=== PATIENT | female | born 1975 | race Caucasian/White ===

== ENCOUNTER 2017-04-26 17:29 | Emergency (ER) | payer OTHER ==
[2017-04-26] MEDS ORDERED: BUFFERED LIDOCAINE 10 ML SYRINGE ONE (17:48)
[2017-04-26] MEDS ORDERED: TETANUS/DIPHTHERIA/PERTUSSIS 0.5 ML SYRINGE IM ONE ×2 (18:04→18:06)
--- NOTE | 2017-04-26 18:06 | ED Physician Documentation ---
PD HPI LOWER EXT INJURY - Stated complaint Stated Complaint: LT FOOT LAC - Chief complaint Chief Complaint: Laceration - History obtained from History obtained from: Patient - History of Present Illness PD HPI LOW EXT INJURY LOCATION: Left, Foot Type of injury: Laceration (dropped knife on foot) Where injury occurred: Home Timing - onset: Today Review of Systems Constitutional: reports: Reviewed and negative Cardiac: reports: Reviewed and negative Respiratory: reports: Reviewed and negative PD PAST MEDICAL HISTORY - Past Medical History Cardiovascular: Hypertension, High cholesterol Respiratory: None Neuro: Fainting Endocrine/Autoimmune: None GI: Chronic constipation 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: None : None HEENT: None Psych: Depression, Bipolar disorder Musculoskeletal: None Derm: Herpes zoster - Past Surgical History 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 Surgical 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: Breast implants - Allergies Allergies/Adverse Reactions: Allergies Allergy/AdvReac Type Severity Reaction Status Date / Time No Known Drug Allergies Allergy Verified 04/26/17 17:35 - Social History Does the pt smoke?: No Smoking Status: Never smoker Does the pt drink ETOH?: No Does the pt have substance abuse?: No - Immunizations Immunizations are current?: Yes - POLST Patient has POLST: No PD ED PE NORMAL - Vitals Vital signs reviewed: Yes - General General: Alert and oriented X 3, No acute distress - Neuro Neuro: Alert and oriented X 3, Normal speech - Psych Psych: Normal mood, Normal affect PD ED PE EXPANDED - Extremities Feet visual: 1 - laceration (2cm vertical lac, NVI) Results - Vitals Vitals: Vital Signs - 24 hr 04/26/17 17:33 Temperature 36.8 C Heart Rate 91 Respiratory 18 Rate Blood Pressure 137/91 H O2 Saturation 98 Oxygen O2 Source Room air Procedures - Laceration (location) L foot Length in cm: 2 Wound type: Linear Neurovascular status: Sensory intact, Motor intact, Vascular intact Anesthesia: Lidocaine 1%, With bicarb Wound Preparation: Betadine, Irrigated copiously NS Skin layer closure: Nylon, Interrupted, Size #-0 - enter number (4-0), Sutures - enter # (6) Other: Patient tolerated well, Tetanus booster given Complexity: Simple Departure - Departure Disposition: 01 Home, Self Care Clinical Impression: Laceration Condition: Good Record reviewed to determine appropriate education?: Yes Instructions: ED Laceration Foot Comments: Wash the wound briefly but in general keep it dry and covered. Come back for any signs of infection which would include: Redness, swelling, drainage, increased pain, or fevers. Followup with your doctor in 14 days for suture removal. Your blood pressure was elevated today on check in to the emergency department. This does not mean that you have hypertension, it is a common phenomenon to check into the emergency department and have elevated blood pressure. I recommend that you see your primary care physician within the week to have it rechecked when you're feeling better.
[2017-04-26 18:40] VITALS: BP 129/86
== END 2017-04-26 18:38 | disposition home or self-care (01) ==
LOC: ED 17:29
DX: S91.312A Laceration without foreign body, left foot, initial encounter (principal); W26.0XXA Contact with knife, initial encounter; Y92.019 Unspecified place in single-family (private) house as the place of occurrence of the external cause; Z23 Encounter for immunization; I10 Essential (primary) hypertension; E78.00 Pure hypercholesterolemia, unspecified
CPT/HCPCS: 12001; 90471; 99283

== ENCOUNTER 2018-11-14 14:51 | Emergency (ER) | payer OTHER ==
[2018-11-14] MEDS ORDERED: HYDROcod/ACETAM 5/325 MG TABLET PO STA (15:20)
[2018-11-14] MEDS ORDERED: IBUPROFEN 800 MG TABLET PO STA (15:20)
--- NOTE | 2018-11-14 15:23 | ED Physician Documentation ---
History of Present Illness - Stated complaint Stated Complaint: RT RIB PX - Chief complaint Chief Complaint: General - History obtained from History obtained from: Patient - History of Present Illness Timing: Other (About a month ago she was doing lifts and she felt a pull in her right lower chest that was kind of bothering her but it was not severe until last night while she was wrestling with her son and got body slammed. Now she has severe right lower rib pain. There is no associated shortness of breath but it hurts to take a deep breath. She denies leg pain, pedal edema, recent travel, history of DVT or PE, hemoptysis, or control use.) Review of Systems Constitutional: denies: Fever, Chills Nose: denies: Rhinorrhea / runny nose, Congestion Cardiac: reports: Chest pain / pressure. 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 - Present Medications Home Medications: Ambulatory Orders Medication Instructions Recorded Confirmed Hydrocodone/Acetaminophen 1 - 2 each PO Q6H PRN #14 tablet 11/14/18 [Hydrocodon-Acetaminophen 5-325] Ibuprofen [Motrin] 800 mg PO Q8H PRN #30 tablet 11/14/18 - Allergies Allergies/Adverse Reactions: Allergies Allergy/AdvReac Type Severity Reaction Status Date / Time No Known Drug Allergies Allergy Verified 11/14/18 15:04 - Social History Does the pt smoke?: No Smoking Status: Never smoker Does the pt drink ETOH?: No Does the pt have substance abuse?: No - Immunizations Immunizations are current?: Yes - POLST Patient has POLST: No PD ED PE NORMAL - Vitals Vital signs reviewed: Yes - General General: Alert and oriented X 3, No acute distress, Other (Winces with motion) - Neck Neck: Supple, no meningeal sign, No bony TTP - Cardiac Cardiac: RRR, No murmur - Respiratory Respiratory: No respiratory distress, Clear bilaterally, Other (Quite tender around rib 9 in the right posterior axillary line.) - Abdomen Abdomen: Non tender - Extremities Extremities: No edema, No calf tenderness / cord Results - Vitals Vitals: Vital Signs - 24 hr 11/14/18 15:01 Temperature 37.1 C Heart Rate 94 Respiratory 16 Rate Blood Pressure 131/83 H O2 Saturation 100 Oxygen O2 Source Room air - Rads (name of study) R ribs and chest Radiology: EMP read contemporaneously (no displaced rib frx) Departure - Departure Disposition: Home, Self Care Clinical Impression: Intercostal muscle tear Qualifiers: Encounter type: initial encounter Qualified Code(s): S29.019A - Strain of muscle and tendon of unspecified wall of thorax, initial encounter Condition: Good Record reviewed to determine appropriate education?: Yes Instructions: ED Contusion Chest Wall Prescriptions: Hydrocodone/Acetaminophen [Hydrocodon-Acetaminophen 5-325] 1 - 2 each PO Q6H PRN #14 tablet PRN Reason: pain Ibuprofen [Motrin] 800 mg PO Q8H PRN #30 tablet PRN Reason: PAIN &/OR FEVER Comments: Call your doctor to arrange a follow-up appointment, make the next available appointment. In the interim, return anytime if worse or if new symptoms develop. Your blood pressure was elevated today on check into the emergency department. This does not mean that you have hypertension, it is a common phenomenon to come to the emergency department and have elevated blood pressure. I recommend that you see your primary care physician within the week to have it rechecked when you are feeling better. Do not drink or drive while taking narcotic pain medication. Note that many narcotic pain relievers also contain Tylenol/acetaminophen. Please ensure that your total dose of acetaminophen from all sources does not exceed 3 g (3000 mg) per day. You may get constipated while on this medication. Take a stool softener such as Colace twice a day while you are on it. Also add an [id number] laxative such as senna or MiraLAX on any day that you do not have a bowel movement. If you received a narcotic pain medication or sedative while in the emergency department, do not drive for the next 24 hours.
--- NOTE | 2018-11-14 15:55 | XRAY Report ---
Reason: R rib pain Procedure Date: 11/14/2018 Accession Number: [id number] / [id number] Procedure: XR - Ribs w/PA Chest RT CPT Code: FULL RESULT: EXAM: RIGHT RIB RADIOGRAPHY EXAM DATE: 11/14/2018 03:41 PM. CLINICAL HISTORY: R rib pain. COMPARISON: None. TECHNIQUE: 1 view of the chest and 2 views of the ribs. FINDINGS: Bones: Normal. No fracture or bone lesion. Lungs: No focal opacities. No pneumothorax. No pleural effusions. Mediastinum: Heart and mediastinal contours are unremarkable. Other: Multiple body piercings noted. Breast implants are present. IMPRESSION: 1. No acute pulmonary process. 2. No displaced rib fracture. [facility]
[2018-11-14 16:09] VITALS: BP 137/96
== END 2018-11-14 16:08 | disposition home or self-care (01) ==
LOC: ED 14:51
DX: S29.019A Strain of muscle and tendon of unspecified wall of thorax, initial encounter (principal); W22.09XA Striking against other stationary object, initial encounter; Y93.72 Activity, wrestling; X50.1XXA Overexertion from prolonged static or awkward postures, initial encounter; I10 Essential (primary) hypertension; E78.00 Pure hypercholesterolemia, unspecified
CPT/HCPCS: 71101; 99283; A9270